=== PATIENT | male | born 1995 | race Caucasian/White ===

== ENCOUNTER 2017-12-12 15:30 | Emergency (ER) | payer OTHER ==
[2017-12-12] MEDS: methylPREDNISolone INJ 125 MG/2 ML VIAL (J2930) IM (18:26)
[2017-12-12] MEDS: diazePAM 5 MG TAB PO (18:26)
[2017-12-12] MEDS: KETOROLAC TROMETHAMINE 10 MG TAB PO (18:27)
== END 2017-12-12 19:13 | disposition home or self-care (01) ==
LOC: M ED 15:30
DX: M54.42 Lumbago with sciatica, left side (principal)
CPT/HCPCS: J2930

== ENCOUNTER 2018-01-07 22:35 | Emergency (ER) | payer OTHER ==
[2018-01-08] MEDS: OXYCODONE/APAP 5MG/325MG(BULK FOR ED) 1 TABLET PO (01:05)
[2018-01-08] MEDS: diazePAM 5 MG TAB PO (01:06)
[2018-01-08] MEDS: NAPROXEN 250 MG TAB PO (01:06)
== END 2018-01-08 01:15 | disposition home or self-care (01) ==
LOC: M ED 01-08 01:15
DX: M54.42 Lumbago with sciatica, left side (principal)
CPT/HCPCS: 99283

== ENCOUNTER 2018-06-05 20:01 | Emergency (ER) | payer OTHER ==
[~2018-06-05] VITALS: Ht 167.6 cm; Wt 81.8 kg
[~2018-06-05 20:01] MED LIST: KETO10TAB PO; NAPR-50 PO; PERC5TAB12 PO; PRED20TA PO; VALI5TAB PO; [UNRECOGNIZED DRUG - OTHER]
[2018-06-05] MEDS ORDERED: NAPR-50 PO (23:35)
[2018-06-05] MEDS ORDERED: ROBA500T PO (23:35)
[2018-06-05] MEDS ORDERED: NAPROXEN 250 MG TAB PO ONE (23:45)
[2018-06-05] MEDS ORDERED: OXYCODONE/APAP 5MG/325MG(BULK FOR ED) 1 TABLET PO ONE (23:45)
[2018-06-05] MEDS ORDERED: METHOCARBAMOL 750 MG TAB PO ONE (23:45)
[2018-06-06 00:02] VITALS: BP 128/58
== END 2018-06-06 00:21 | disposition home or self-care (01) ==
LOC: M ED 20:01
DX: M54.42 Lumbago with sciatica, left side (principal); W00.9XXA Unspecified fall due to ice and snow, initial encounter; Y92.9 Unspecified place or not applicable; Y93.01 Activity, walking, marching and hiking; Y99.9 Unspecified external cause status

== ENCOUNTER 2018-08-26 20:51 | Emergency (ER) | payer OTHER ==
[~2018-08-26] VITALS: Ht 167.6 cm; Wt 79.5 kg
[~2018-08-26 20:51] MED LIST changes: -NAPR-50 PO; +NAPR-837 PO; +ROBA500T PO
[2018-08-26] MEDS ORDERED: VENTAER INH (20:59)
[2018-08-26] MEDS ORDERED: ALBU83IN NEB (20:59)
[2018-08-26] MEDS ORDERED: PRED5TA PO (20:59)
[2018-08-26] MEDS ORDERED: IPRATROPIUM 0.5MG/ALBUTEROL 2.5MG INH SOL UD 3ML (DUONEB)(J7620) NEB ONE (21:30)
[2018-08-26] MEDS ORDERED: dexameTHASONE 20 MG/5 ML VIAL (J1100) IV ONE (21:30)
[2018-08-26] MEDS ORDERED: ACETAMINOPHEN TAB 650MG DOSE (2X325MG) PO ONE (21:30)
[2018-08-26] MEDS ORDERED: ALBUTEROL SULFATE 2.5 MG/0.5 ML INH NEB SOLN INH ONE (21:30)
[2018-08-26] MEDS ORDERED: NS 1,000 ML IV ONE (21:30)
[2018-08-26 22:06] LABS: BASO % 0.3 % (0.0-1.0); EOS # 0.4 10^3/uL (0.0-0.50); EOS % 5.4 % (0.0-3.0); HEMATOCRIT 41.4 % (42.0-52.0); HEMOGLOBIN 14.3 g/dl (13.5-17.5); LYMPH # 1.2 10^3/uL (1.5-6.5); LYMPH % 14.7 % (24.0-44.0); MEAN CORPUSCULAR HEMOGLOBIN 29.4 pg (27.0-33.0); MEAN CORPUSCULAR HGB CONC 34.5 g/dl (32.0-36.5); MONO # 0.7 10^3/uL (0.0-0.8); MONO % 8.8 % (0.0-5.0); NEUTROPHILS # 5.5 10^3/uL (1.8-7.7); NEUTROPHILS % 70.5 % (36.0-66.0); PLATELET COUNT, AUTOMATED 265 10^3/uL (150-450); RED BLOOD COUNT 4.87 10^6/uL (4.30-6.10); WHITE BLOOD COUNT 7.8 10^3/uL (4.0-10.0)
[2018-08-26 22:07] LABS: INFLUENZA A AMPLIFICATION NEGATIVE (NEGATIVE); INFLUENZA B AMPLIFICATION NEGATIVE (NEGATIVE)
[2018-08-26 22:32] LABS: BLOOD UREA NITROGEN 12 MG/DL (7-18); CALCIUM LEVEL 8.6 MG/DL (8.5-10.1); CARBON DIOXIDE LEVEL 28 MEQ/L (21-32); CHLORIDE LEVEL 108 MEQ/L (98-107); CREATININE FOR GFR 0.82 MG/DL (0.70-1.30); GLOMERULAR FILTRATION RATE > 60.0 (>60); GLUCOSE, FASTING 110 MG/DL (70-100); POTASSIUM SERUM 3.5 MEQ/L (3.5-5.1); SODIUM LEVEL 141 MEQ/L (136-145)
[2018-08-26] MEDS ORDERED: PRED20TA PO (23:39)
[2018-08-26] MEDS ORDERED: AZIT500T2 PO (23:39)
[2018-08-26] MEDS ORDERED: AZITHROMYCIN 250 MG TAB PO ONE (23:45)
[2018-08-27 00:30] VITALS: BP 120/70
--- NOTE | 2018-08-27 01:13 | REP ---
Clinical: Cough and dyspnea . Comparison: None . Technique: PA and lateral. Findings: The mediastinum and cardiac silhouette are normal. The lung [place] are clear and without acute consolidation, effusion, or pneumothorax. The skeletal structures are intact and normal. Impression: 1. No acute cardiopulmonary process. Electronically Signed by Gerald Hill MD 08/27/2018 01:04 A
== END 2018-08-27 00:35 | disposition home or self-care (01) ==
LOC: M ED 20:51
DX: J21.9 Acute bronchiolitis, unspecified (principal); J45.901 Unspecified asthma with (acute) exacerbation; M54.9 Dorsalgia, unspecified; Z79.899 Other long term (current) drug therapy; Z79.1 Long term (current) use of non-steroidal anti-inflammatories (NSAID); Z79.52 Long term (current) use of systemic steroids
CPT/HCPCS: 71046; 80048; 85025; 87040; 87070; 87205; 87502; 93041; 94640; 94760; 96361; 96374; 99284; J1100